=== PATIENT | female | born 1995 | race American Indian/Alaskan Native ===

== ENCOUNTER 2016-11-19 | Inpatient (IN) | payer MEDICAID ==
[2016-11-19] MEDS ORDERED: Lactated Ringers 500 ML IV ONE (00:01)
[2016-11-19] MEDS ORDERED: Carboprost Tromethamine 250 MCG/1 ML Amp IM PRN (00:01)
[2016-11-19] MEDS ORDERED: Misoprostol 400 MCG (4 X 100 MCG TAB) RECTAL PRN (00:01)
[2016-11-19] MEDS ORDERED: Sodium Chloride 0.9% 10 ML Syringe FLUSH PRN (00:01)
[2016-11-19] MEDS ORDERED: Lidocaine 1% 30 ML SDV INJECT PRN (00:01)
[2016-11-19] MEDS ORDERED: Acetaminophen 325 MG Tab PO PRN ×3 (00:01→13:17)
[2016-11-19] MEDS ORDERED: Methylergonovine 0.2 MG/1 ML Amp IM PRN (00:01)
[2016-11-19] MEDS ORDERED: Misoprostol 25 MCG (1/4 of 100 MCG) Tab VAG PRN (00:01)
[2016-11-19] MEDS ORDERED: Oxytocin/Normal Saline 30 UNIT/500 ML BAG IV SCH ×2 (02:45→13:30)
[2016-11-19] MEDS: Lactated Ringers 1,000 ML IV SCH ×3 (03:05→20:44)
[2016-11-19] MEDS: Ondansetron 4 MG/2 ML SDV IV PRN ×2 (10:57→17:48)
--- NOTE | 2016-11-19 11:10 | HP ---
ADDENDUM: For history and physical, please see EPIC notes updated, and please see NST notes for updates as well. [facility] /[id number]
--- NOTE | 2016-11-19 11:12 | PN ---
DATE: 11/19/2016 SUBJECTIVE: The patient feels her contractions rating them 6/10, felt in the lower abdomen and back coming every couple minutes. Pitocin is currently at 4 milliunits per minute. The patient denies any headaches, visual changes, or upper abdominal pain. OBJECTIVE: Last blood pressure was 127/79. Tocometer reveals contractions every 1-1/2 to 2 minutes. Vaginal exam reveals her to be 3 cm, 60% to 70% effaced, -1 to -2 station, vertex suspected. Artificial rupture of membranes done after discussion with patient yielding copious amounts of clear fluid. Labs from last reviewed reveal a white cell count of 9.3, hemoglobin 11.5, and platelets 272. Urine protein-creatinine ratio 0.09. Drug screen negative and HELLP labs are negative. ASSESSMENT AND PLAN: Intrauterine 41-4/7 weeks by 37-6/7 weeks ultrasound complicated by gestational hypertension, insufficient care, positive gonorrhea and chlamydia in the third trimester, that has been treated. Anemia of with hemoglobin now being 11.5, GBS negative, G 2, P 1-0-0- 1, could not do Cytotec due to the amount of contractions she has had. She has been on low-dose Pitocin since last night and now status post artificial rupture of membranes. We will continue to follow clinically and closely. Continue Pitocin as needed as well. [facility] /[id number]
--- NOTE | 2016-11-19 11:55 | PCM.SN ---
- Free Text/Narrative Note: Intrathecal. Sitting position, sterile prep and drape. 1% lidocaine w bicarb for skinwheal to L2 L3 inbterspace. Introducer, 24 ga pencan x 1. Pos CSF, neg heme, neg parasthesia. 1:1000 pf epi wash, 15 mcg pf sufenta, 35 mcg pf fentanyl , 0.4 ml pf ns and 6 mg of 0.75% pf bupivacaine injected after CSF aspiration. Pt to L lateral position. Procedure time 6583-6916
[2016-11-19] MEDS ORDERED: Oxytocin/Normal Saline 60 UNIT/1,000 ML BAG ONE (13:13)
[2016-11-19] MEDS ORDERED: diphenhydrAMINE 50 MG/ML SDV IVPUSH PRN (13:17)
[2016-11-19] MEDS ORDERED: Ondansetron 4 MG/2 ML SDV IV PRN (13:17)
[2016-11-19] MEDS ORDERED: ePHEDrine 50 MG/ML SDV IVPUSH PRN (13:17)
[2016-11-19] MEDS ORDERED: Citric Acid/Sodium Citrate Solution 30 ML Cup PO ONE (13:17)
[2016-11-19] MEDS ORDERED: ceFAZolin 2 GM in Premix Bag 1 BAG IV ONE (13:17)
[2016-11-19] MEDS ORDERED: Citric Acid/Sodium Citrate Solution 30 ML Cup ONE (13:17)
[2016-11-19] MEDS ORDERED: Naloxone 2 MG/2 ML Syringe IVPUSH PRN (13:17)
[2016-11-19] MEDS ORDERED: Lactated Ringers 1,000 ML IV SCH (13:30)
--- NOTE | 2016-11-19 14:31 | PCM.SN ---
- Free Text/Narrative Note: Preop. Late entry 1323. No family Hx of anesthesia complications. Pos smoker, meds and allergies reviewed w chart review. Pos heartburn w . Mallampati 3 w large tongue. Lungs CTAB, heart RRR S1 S2 Risks benefits and alternatives of anesthesia explained to Pt. Pt denies questions or concerns. Plan SAB w GETA backup.
[2016-11-19] MEDS: Acetaminophen/oxyCODONE 325-5 MG Tab PO PRN ×2 (19:36→23:25)
[2016-11-19] MEDS: Ketorolac 30 MG/ML SDV IVPUSH SCH (20:44)
[2016-11-19] MEDS: Docusate Sodium 100 MG Cap PO PRN (23:24)
[2016-11-20] MEDS: Ketorolac 30 MG/ML SDV IVPUSH SCH ×2 (02:53→08:35)
[2016-11-20] MEDS: Acetaminophen/oxyCODONE 325-5 MG Tab PO PRN ×6 (03:24→23:43)
[2016-11-20] MEDS: Lactated Ringers 1,000 ML IV SCH (05:50)
--- NOTE | 2016-11-20 08:07 | OR ---
DATE: 11/19/2016 PREOPERATIVE DIAGNOSES: 1. Intrauterine 41-4/7th weeks by 37-6/7 week ultrasound. 2. Nonreassuring status. 3. Gestational hypertension. 4. Insufficient care. 5. Positive gonorrhea and chlamydia in third trimester-treated. 6. History of anemia in . 7. Group B Streptococcus, negative. 8. G2, P1-0-0-1. POSTOPERATIVE DIAGNOSES: 1. Intrauterine 41-4/7th weeks by 37-6/7 week ultrasound-delivered. 2. Nonreassuring status. 3. Gestational hypertension. 4. Insufficient care. 5. Positive gonorrhea and chlamydia in third trimester-treated. 6. History of anemia in . 7. Group B Streptococcus, negative. 8. G2, P1-0-0-1. 9. OP presentation. 10.Nuchal cord x1, reduced bluntly with delivery. PROCEDURE PERFORMED: NST, artificial rupture of membranes, Pitocin augmentation, and primary low transverse with 2-layer uterine closure. AUTOMATIC WASHER MECHANIC: 1. Diandra Porras MD. 2. Eliseo Barry, MS III. ANESTHESIA: Spinal. ESTIMATED BLOOD LOSS: 800 mL. IV FLUIDS: 600 mL of lactated Ringer's, 300 mL of Pitocin. URINE OUTPUT: 100 mL and clear yellow. START: 1345 hours. UTERINE INCISION: 1346 hours. DELIVERY: 1346 hours. STOP: 1414 hours. FINDINGS: Male, scores of 7 and 9, weight pending. DESCRIPTION OF PROCEDURE IN DETAIL: After informed consent was obtained, the patient was brought to the operating room where spinal anesthetic was administered. Shepherd was placed in the preop under sterile conditions. Abdomen was prepped and draped in the normal sterile fashion. The patient was placed in supine position with left lateral tilt. Prepping was done with Betadine sticks due to urgency of situation. Spinal was given after heart tones were monitored prior and after the spinal and after spinal, they were in the 120s. A skin incision was then made on lower abdomen in transverse Pfannenstiel-type fashion. This was carried down to the fascia, which was scored in the midline. Subcutaneous tissue was raked laterally bluntly and fascial incision was extended superiorly and inferiorly, and laterally using blunt technique, bluntly dissecting the fascia from the rectus and pyramidalis muscles. Rectus muscles were in the midline with blunt technique. Abdominal cavity was entered with blunt technique. Incision was extended superiorly and inferiorly using blunt technique. Chaitanya O large retractor was then introduced and used. A curvilinear incision was made on lower uterine segment at 1346 hours, clear fluid returned. The uterine incision was then extended in transverse fashion using blunt technique. vertex was then brought up from the pelvis and delivered through the incision with nuchal cord x1, reduced bluntly with delivery with OP presentation noted, rest of the delivered thereafter without difficulty. Mouth and nares were suctioned. Cord was doubly clamped and cut, and infant was brought over to team. Then, approximately 10 mL of cord blood was obtained for labs. Placenta was then delivered with gentle cord traction and fundal massage. Uterine cavity was then cleared of all blood clots and debris with lap sponge. Sosa clamps were used to grasp the uterine incision, this was closed in a running locked fashion, tied at lateral margins. Of note, left lateral portion incision did extend inferiorly approximately 2 cm from the lower uterine segment. A second imbricating layer was then applied and tied at lateral margin with 1-0 Vicryl. Minimal bleeding was noted at right lateral portion of incision and one [id number]-[id number] stitch was applied, hemostasis reassured. The uterus was exteriorized for this right lateral figure-eight stitch for better visualization. First inspection of the uterine incision revealed hemostasis and uterus was returned to the abdomen. Second inspection of the uterine incision revealed hemostasis and Chaitanya O retractor was then removed. Pericolic gutters were cleared of all blood clots, debris with lap sponge. Anterior cul-de-sac was then irrigated copiously and all blood clots were removed. Third and final inspection of the uterine incision and anterior cul-de-sac revealed hemostasis. Rectus muscles were then reapproximated in midline using [id number] stitches and 1-0 Vicryl. Subfascial tissue was found to be hemostatic. Fascia was closed in running fashion, tied at lateral margins with 0 looped PDS. Subcutaneous tissue was irrigated copiously. Hemostasis was reassured. Skin was reapproximated with medium teo. Sterile Aquacel dressing was applied. Uterine fundus was firm and massaged at conclusion of the case -1 below umbilicus. No immediate complications were noted. Sponge, lap, and needle counts were correct. The patient received 2 g of Ancef preoperatively, Pitocin per protocol, and will receive Toradol at the conclusion of case for pain control. Mother and are currently stable at the time of dictation. [facility] /[id number]
--- NOTE | 2016-11-20 08:11 | PN ---
DATE: 11/19/2016 SUBJECTIVE: I was called to the room in a stat fashion. OBJECTIVE: heart tones do reveal a 5 minute deceleration, lowest heart rate during that time was around 70s to 80s with some recurrent late decelerations prior to this. She has also had some variable decelerations. Last blood pressure 133/79, heart rate 90, Pitocin has been stopped. Tocometer reveals contractions every 1.5 to 5 minutes apart. Vaginal exam reveals her to be 7-8 cm, 70% effaced -1 station, vertex suspected. ASSESSMENT AND PLAN: Nonreassuring status with late decelerations or prolonged deceleration. At current time of dictation, heart tones are in the 120s. Pitocin was stopped, oxygen started, IV fluids have been given, and we will proceed to the OR as soon as crew is ready and available. I did discuss with the patient, we will check her cervix prior to going the OR in the case that she is in the second stage of labor and may consider vaginal delivery at that time possibly. I did discuss with patient and her older female partner who was there. I did discuss with them risks, benefits, alternatives, and complications of including, but are not limited to infection, bleeding, damage to internal organs such as bowel, bladder, tubes, uterus, sometimes fetus; rarely needing a blood transfusion or further surgery, and even rare maternal or . She understands and agrees and wishes to proceed. Verbal and written consents were obtained, questions were answered. We will check her cervix prior to leaving the OR, otherwise we will proceed as above. [facility] /[id number]
--- NOTE | 2016-11-20 08:11 | PN ---
DATE: 11/19/2016 SUBJECTIVE: The patient still feels her contractions. OBJECTIVE: She just had another deceleration that lasted for 4 to 6 minutes. Vaginal exam done reveals her to be still 8 cm, 70% effaced, -1 station, vertex suspected. ASSESSMENT AND PLAN: Nonreassuring status in this patient, OR crew is almost ready, and DOUGHNUT MACHINE OPERATOR is seeing the patient right now. We will proceed to the OR as soon as possible due to the nonreassuring status. This was discussed with the patient, she understands and agrees. [facility] /[id number]
--- NOTE | 2016-11-20 08:13 | OBOUT ---
DATE: 11/19/2016 DATE AND TIME OF NST: Date: 11/19/2016. Time 0020 hours to 0040 hours. REASON FOR NST: 1. Intrauterine 41-4/7th weeks by 37-6/7 week ultrasound. 2. Gestational hypertension. 3. Insufficient care. 4. Positive GC and chlamydia in third trimester-treated. 5. Anemia of . 6. Group B Streptococcus, negative. 7. G2, P1-0-0-1. NST INTERPRETATION: During this time period, heart tone baseline is approximately 135, and there are at least two 15 x 15 beat per minute accelerations, making this strip reactive. It is also noted to be reassuring. Tocometer reveals potential of 7 to 8 contractions during this time. ASSESSMENT: 1. Non-stress test reactive and reassuring. 2. Tocometer with contractions. PLAN: The patient was initially evaluated, had some elevated blood pressures 147/97, temperature 98.5, heart rate 85. Recheck 150/99. Preeclampsia workup was done with HELLP labs being negative as well as a protein creatinine ratio being 0.09, and urine drug screen being negative. She was subsequently admitted and because of her risk factors, she was to be induced with Cytotec however, she had to make contractions, therefore, low-dose Pitocin was started for induction/augmentation of her labor. Please see EPIC for history and physical for further details. [facility] /[id number]
[2016-11-20] MEDS: Docusate Sodium 100 MG Cap PO PRN (08:36)
--- NOTE | 2016-11-20 10:13 | PN ---
DATE: 11/20/2016 day #1. SUBJECTIVE: The patient is tolerating p.o., has not ambulated yet. Shepherd is in place. Flatus is questionable. OBJECTIVE: Vital Signs: Last set of vitals updated and listed in chart reveals temperature 97, heart rate 93, blood pressure 144/82, and respiratory rate 16. Lungs: Clear to auscultation bilaterally. Heart: S1 and S2. Regular rate and rhythm. Firm uterus at the umbilicus. Aquacel dressing appears dry and intact with no shadowing. I's and O's reveal over the last 6 hours having 650 mL out. LABORATORY DATA: White cell count 20.3, hemoglobin 8.9, and platelets 220. ASSESSMENT AND PLAN: day #1. 1. Status post primary low transverse 2 layer with uterine closure. 2. Leukocytosis, suspect reactive in nature. We will repeat CBC tomorrow. 3. Anemia acute blood loss with hemoglobin dropping from 11.5 to 8.9. 4. Gestational hypertension. She has had some blood pressures that have been elevated, but nothing in severe range. We will continue to follow clinically and closely. We will follow up for any signs and symptoms of preeclampsia as well. Of note, her urinalysis and protein creatinine ratio was not consistent with preeclampsia. Discussed plans with the patient. She understands and agrees with the above treatment plan. [facility] /[id number]
--- NOTE | 2016-11-20 10:47 | PCM.SN ---
- Free Text/Narrative Note: Post op. Pt alert and oriented. VSS. Pt denies [place], backache, parasthesias or nausea. Taking PO well. Pain controlled, ambulating w/o difficulty. No anesthesia concerns noted.
[2016-11-20] MEDS: Ibuprofen 800 MG Tab PO PRN ×2 (15:58→23:43)
[2016-11-20] MEDS: Ferrous Sulfate 325 MG Tab PO SCH (17:40)
[2016-11-20] MEDS: Prenatal Multivitamin with Calcium/Folic Acid/Iron Tab PO SCH (17:40)
[2016-11-20] MEDS: Simethicone 80 MG Tab.Chew PO PRN (23:45)
[2016-11-21] MEDS: Simethicone 80 MG Tab.Chew PO PRN ×4 (03:51→16:18)
[2016-11-21] MEDS: Acetaminophen/oxyCODONE 325-5 MG Tab PO PRN ×5 (03:51→20:09)
[2016-11-21] MEDS: Ferrous Sulfate 325 MG Tab PO SCH (08:06)
[2016-11-21] MEDS: Prenatal Multivitamin with Calcium/Folic Acid/Iron Tab PO SCH (08:06)
[2016-11-21] MEDS: Docusate Sodium 100 MG Cap PO PRN ×2 (08:06→20:09)
--- NOTE | 2016-11-21 11:45 | PN ---
DATE: 11/21/2016 Postop day #2, status post primary low transverse with 2-layer uterine closure. SUBJECTIVE: The patient describes some minimal soreness around the incision. Otherwise, she has been tolerating p.o., ambulating, urinating, and passing flatus. OBJECTIVE: Exam done in conjunction with Eliseo Barry, MS III. Vital signs: Temperature 97.7, heart rate 79, blood pressure 134/68, respiratory rate 16. Lungs: Clear to auscultation bilaterally. Heart: S1 and S2. Regular rate and rhythm. Firm uterus approximately at the umbilicus. Aquacel dressing dry and intact. AUGUSTINE hose are on. ASSESSMENT AND PLAN: 1. Postop day #2, status post primary low transverse with 2-layer uterine closure. 2. Anemia of acute blood loss with hemoglobin dropping from 11.5 to 8.9. We will check a CBC tomorrow. PLAN: We will continue to follow clinically and closely. Possible discharge tomorrow and discussed with the patient. She understands and agrees. [facility] /[id number]
[2016-11-21] MEDS: Ibuprofen 800 MG Tab PO PRN (17:00)
[2016-11-22] MEDS: Acetaminophen/oxyCODONE 325-5 MG Tab PO PRN ×4 (00:09→13:21)
[2016-11-22] MEDS: Simethicone 80 MG Tab.Chew PO PRN ×4 (00:09→13:21)
[2016-11-22] MEDS: Ibuprofen 800 MG Tab PO PRN (02:35)
[2016-11-22 07:50] VITALS: BP 121/74
[2016-11-22] MEDS: Ferrous Sulfate 325 MG Tab PO SCH (08:54)
[2016-11-22] MEDS: Prenatal Multivitamin with Calcium/Folic Acid/Iron Tab PO SCH (08:54)
[2016-11-22] MEDS: Docusate Sodium 100 MG Cap PO PRN (08:54)
--- NOTE | 2016-11-22 09:57 | PN ---
DATE: 11/22/2016 Postoperative day #3, status post primary low transverse with 2-layer uterine closure. SUBJECTIVE: The patient is doing well, lying in bed this morning. Some mild pain at the incision site, otherwise has been tolerating liquids and solids p.o., ambulating, has been able to urinate and pass gas but has not had a bowel movement. The reports feeding formula for baby has been going well. She has no concerns for herself or baby at this time. OBJECTIVE: Vital Signs: Temp is 97.5 Fahrenheit, pulse is 80, blood pressure is 121/74, and respirations 16, with O2 saturation 98. Appearance: The patient is doing well, lying in bed, in no acute distress. Lungs: Clear to auscultation bilaterally. Heart: S1 and S2 are normal. Regular rate and rhythm. Abdomen: Soft, with firm uterus. Bowel sounds are present. Extremities: No swelling or pain in the lower extremities. Aquacel dressing is dry and intact. AUGUSTINE hoses are on. LABORATORY DATA: CBD done; hemoglobin is 8.8 this morning and hematocrit is 27.6, WBC is 14.8 and RBC is 3.14. ASSESSMENT: 1. Postoperative day #3, status post primary low transverse with 2- layer uterine closure. 2. Anemia of acute blood loss with hemoglobin dropping from 11.5 to 8.8. PLAN: Both, the patient and baby, are doing well. Pain is controlled. Hemoglobin is up to 8.8. We will look at discharging today. [facility] /[id number]
[2016-11-22] MEDS ORDERED: fentaNYL 100 MCG/2 ML SDV IV ONE (13:29)
[2016-11-22] MEDS ORDERED: ePHEDrine 50 MG/ML SDV IV ONE (13:29)
[2016-11-22] MEDS ORDERED: Dexamethasone 4 MG/ML SDV IV ONE (13:29)
[2016-11-22] MEDS ORDERED: Ketorolac 30 MG/ML SDV IVPUSH ONE (13:29)
[2016-11-22] MEDS ORDERED: Morphine PF 5 MG/10 ML SDV IV ONE (13:29)
[2016-11-22] MEDS ORDERED: Oxytocin/Normal Saline 30 UNIT/500 ML BAG IV ONE (13:29)
--- NOTE | 2016-11-23 10:53 | DISCH ---
ADMIT DIAGNOSES: 1. Intrauterine 41-4/7th weeks by 37-6/7 week ultrasound. 2. Gestational hypertension. 3. Insufficient care. 4. Positive gonorrhea and chlamydia-treated in the 3rd trimester. 5. Anemia of . 6. Group B Streptococcus negative. 7. G2, P1-0-0-1. DISCHARGE DIAGNOSES: 1. Intrauterine 41-4/7th weeks by 37-6/7 week ultrasound-delivered. 2. Gestational hypertension. 3. Insufficient care. 4. Positive gonorrhea and chlamydia-treated in the 3rd trimester. 5. Anemia of . 6. Group B Streptococcus, negative. 7. G2, P1-0-0-1. 8. Nonreassuring status. 9. OP presentation. 10.Nuchal cord x1, reduced bluntly with delivery. 11.Anemia of acute blood loss with hemoglobin dropping from 11.5 to 8.8. PROCEDURE PERFORMED: NST, artificial rupture of membranes, Pitocin augmentation, and then subsequent primary low transverse with two- layer uterine closure per Dr. Bowman. HISTORY OF PRESENT ILLNESS: Please see H and P. SUMMARY OF HOSPITAL COURSE: The patient was admitted on the above date with the above diagnoses, underwent above procedures, then went on to have nonreassuring status, which prompted a primary low transverse with two-layer uterine closure done under spinal anesthetic with an EBL of 800 mL. Please see delivery/OP note for further details. This yielded a male, scores 7 and 9, with a weight of 3630 g (8 pounds). Postoperative day #1 and #2, please see progress note. Postop day #3, discharge evaluation: Vital signs: Last set of vitals updated and listed in the chart; temperature 97.5, heart rate 80, blood pressure 121/74, respiratory rate 16. Lungs: Clear to auscultation bilaterally. Heart: S1 and S2. Regular rate and rhythm. Abdomen: Firm uterus approximately at umbilicus. Aquacel dressing appears dry and intact. Extremities: Trace pedal edema. No calf pain. LABORATORY DATA: Discharge labs reveal a white cell count of 14.8, hemoglobin 8.8, platelets 224. CONDITION ON DISCHARGE COMPARED TO CONDITION ON ADMISSION: Improved. DISCHARGE INSTRUCTIONS: 1. Diet, as tolerated. 2. Activity; no lifting more than 10 to 15 pounds. No sit-ups, straining, and pelvic rest for the next 6 weeks with immediate return to fertility discussed with the patient. 3. Reasons to return or go to the emergency room were discussed with the patient in detail including, but not limited to, temperature greater than 100.4, foul-smelling discharge, red, hot, tender breasts, or increased vaginal bleeding. DISCHARGE MEDICATIONS: 1. [id number]-oed-jzupmtz Tylenol or ibuprofen for pain. 2. Iron sulfate 325 b.i.d. x6 weeks. 3. Percocet 5/325, one to two q.6 hours p.r.n., #30, no refills. Discussed the use of this medication, adverse and wanted effects, as well as precautions with driving. FOLLOWUP: Follow up on Saturday11/26/2016, with her baby, for staple removal. I did discuss the importance of followup of her and ramifications of not doing so. The patient understands and agrees with the above treatment plan. [facility] /[id number]
== END 2016-11-22 13:30 | disposition home or self-care (01) | DRG 765 ==
LOC: DL.OB → UNDOADMIN → EDSTATUS 01:22 → DL.OB 13:46 → DL.MS 11-20 11:02
PROVIDERS: ADMIT Family Medicine; ATTEND Family Medicine
PROC: 10D00Z1 Extraction of Products of Conception, Low, Open Approach (ICD-10-PCS; principal; 2016-11-19)
PROC: 4A0HXCZ Measurement of Products of Conception, Cardiac Rate, External Approach (ICD-10-PCS; 2016-11-19)
PROC: 3E033VJ Introduction of Other Hormone into Peripheral Vein, Percutaneous Approach (ICD-10-PCS; 2016-11-19)
DX: O76 Abnormality in fetal heart rate and rhythm complicating labor and delivery (principal); O98.22 Gonorrhea complicating childbirth; O98.82 Other maternal infectious and parasitic diseases complicating childbirth; D62 Acute posthemorrhagic anemia; O13.4 Gestational [pregnancy-induced] hypertension without significant proteinuria, complicating childbirth; O09.33 Supervision of pregnancy with insufficient antenatal care, third trimester; O69.1XX0 Labor and delivery complicated by cord around neck, with compression, not applicable or unspecified; O90.81 Anemia of the puerperium; Z3A.41 41 weeks gestation of pregnancy; Z37.0 Single live birth
CPT/HCPCS: 01961; 01967; 36415; 51702; 80305; 82570; 83615; 84156; 84450; 84460; 84520; 84550; 85025; 85027; 94010; A9270-GY; J0690; J1100; J1885; J2274; J2405; J2590; J3010; J7120

== ENCOUNTER 2019-11-09 06:03 | Inpatient (IN) | payer MEDICAID ==
[2019-11-09] MEDS ORDERED: Acetaminophen/oxyCODONE 325-5 MG Tab PO PRN (06:08)
[2019-11-09] MEDS ORDERED: Misoprostol 400 MCG (4 X 100 MCG TAB) RECTAL PRN (06:08)
[2019-11-09] MEDS ORDERED: Carboprost Tromethamine 250 MCG/1 ML Amp IM PRN (06:08)
[2019-11-09] MEDS ORDERED: Naloxone 2 MG/2 ML Syringe IVPUSH PRN (06:08)
[2019-11-09] MEDS ORDERED: diphenhydrAMINE 50 MG/ML SDV IVPUSH PRN (06:08)
[2019-11-09] MEDS ORDERED: Tranexamic Acid 1,000 MG in Sodium Chloride 0.9% 100 ML IV PRN (06:08)
[2019-11-09] MEDS ORDERED: ceFAZolin 2 GM in Premix Bag 1 BAG IV ONE (06:08)
[2019-11-09] MEDS ORDERED: Acetaminophen 325 MG Tab PO PRN (06:08)
[2019-11-09] MEDS ORDERED: Citric Acid/Sodium Citrate Solution 30 ML Cup PO ONE (06:08)
[2019-11-09] MEDS ORDERED: Methylergonovine 0.2 MG/1 ML Amp IM PRN (06:08)
[2019-11-09] MEDS ORDERED: Oxytocin/Normal Saline 30 UNIT/500 ML BAG IV SCH (06:15)
[2019-11-09] MEDS: Lactated Ringers 1,000 ML IV SCH ×4 (06:24→20:29)
[2019-11-09 07:17] LABS: CHLORIDE,CL 108 mmol/L (101-111); SODIUM,NA 135 mmol/L (135-145)
[2019-11-09] MEDS ORDERED: ePHEDrine 50 MG/ML SDV IV ONE (10:38)
[2019-11-09] MEDS ORDERED: Oxytocin/Normal Saline 30 UNIT/500 ML BAG IV ONE (10:38)
[2019-11-09] MEDS ORDERED: Ketorolac 30 MG/ML SDV IVPUSH ONE (10:38)
[2019-11-09] MEDS ORDERED: Morphine PF 1 MG/ML Amp ITHECAL ONE (10:38)
[2019-11-09] MEDS ORDERED: Ondansetron 4 MG/2 ML SDV IV ONE (10:38)
[2019-11-09] MEDS ORDERED: Lactated Ringers 1,000 ML IV ONE (10:38)
[2019-11-09] MEDS ORDERED: Dexamethasone 4 MG/ML SDV IV ONE (10:38)
[2019-11-09] MEDS ORDERED: CEL IM ONE (10:45)
[2019-11-09] MEDS ORDERED: FLU VAC QS IM ONE (10:45)
[2019-11-09] MEDS ORDERED: Diphtheria,Pertussis(Acell),Tetanus Vaccine 0.5 ML SDV IM ONE (10:45)
[2019-11-09] MEDS ORDERED: Sodium Bicarbonate 4.2% 2.5 MEQ/5 ML SDV IV ONE (10:47)
[2019-11-09] MEDS: Simethicone 80 MG Tab.Chew PO SCH ×4 (10:48→20:29)
[2019-11-09] MEDS: Prenatal Multivitamin with Calcium/Folic Acid/Iron Tab PO SCH (10:48)
[2019-11-09] MEDS ORDERED: Labetalol 100 MG/20 ML MDV IVPUSH ONE (11:00)
[2019-11-09] MEDS: Ondansetron 4 MG/2 ML SDV IVPUSH PRN ×2 (11:00→16:10)
--- NOTE | 2019-11-09 11:19 | OR ---
DATE: 11/09/2019 PREOPERATIVE DIAGNOSES: 1. Intrauterine at 37 and 3/7 weeks by 31 and 4/7 weeks ultrasound. 2. Gestational hypertension. 3. Previous , requests repeat low transverse section. 4. GBS bacteriuria. 5. History of positive urine drug screen for THC. Negative upon admission. 6. Trichomoniasis in - treated. 7. Antibody E isoimmunization. Maternal- Medicine consult given. No evidence of anemia. Recommendation to deliver at 37+ weeks. 8. History of preeclampsia with previous . 9. G3, P2-0-0-2. POSTOPERATIVE DIAGNOSES: 1. Intrauterine at 37 and 3/7 weeks by 31 and 4/7 weeks ultrasound - delivered. 2. Gestational hypertension. 3. Previous , requests repeat low transverse section. 4. GBS bacteriuria. 5. History of positive urine drug screen for THC. Negative upon admission. 6. Trichomoniasis in - treated. 7. Antibody E isoimmunization. Maternal- Medicine consult given. No evidence of anemia. Recommendation to deliver at 37+ weeks. 8. History of preeclampsia with previous . 9. G3, P2-0-0-2. 10.Nuchal cord x1, reduced bluntly with delivery. PROCEDURES PERFORMED: NST followed by repeat low transverse . HAIR SPRING CUTTER: Rosey Zhang MD ANESTHESIA: Spinal. ESTIMATED BLOOD LOSS: 450 mL. IV FLUIDS: 700 mL of lactated Ringer's, 200 mL of Pitocin. URINE OUTPUT: 225 mL and clear yellow. START: 7:59. UTERINE INCISION: 8:01. DELIVERY: 8:02. STOP: 8:19. FINDINGS: Male, score 9 and 9, weight pending. DESCRIPTION OF PROCEDURE IN DETAIL: After proper consent was obtained, the patient was brought to the operating room where spinal anesthetic was administered. Shepherd was placed in preop under sterile conditions. Abdomen was prepped and draped in normal sterile fashion. The patient was placed in supine position with left lateral tilt. A skin incision was then made over lower abdomen in transverse Pfannenstiel-type fashion over previous scar and this was carried down the fascia and scored in midline. Subcutaneous tissue raked laterally with Coyle retractor. Fascial incision was extended in transverse fashion using curved Roldan's. Perico clamps x2 were used to grasp the superior aspect of the fascia, and rectus muscles dissected from the fascia using sharp and blunt technique. In a similar fashion, Perico clamps x2 were used to grasp the inferior portion of incision and rectus and pyramidalis muscles were dissected from the fascia using sharp and blunt technique. Rectus muscles were in midline with blunt technique. Abdominal cavity was entered with blunt technique and incision was extended superiorly and inferiorly with blunt technique. Chaitanya O large retractor was introduced and used. Vesicouterine peritoneum was identified, incised in transverse fashion with Metzenbaum scissors, and bladder flap was made digitally. A curvilinear incision was made on the lower uterine segment at 0801 hours. Uterus was entered sharply. Clear fluid returned after uterine incision was extended in transverse fashion and rupture of membranes was performed with Allis clamps. vertex was then delivered through the incision followed by rest of the delivered without difficulty. Nuchal cord x1 reduced bluntly with delivery. Mouth and nares were suctioned. Cord was doubly clamped and cut, and infant was brought over to the team. Then, approximately 10 mL of cord blood was obtained for labs. Placenta then delivered with gentle cord traction and fundal massage. Uterine cavity was then cleared of all blood clots and debris with lap sponge. Sosa clamps were used to grasp the uterine incision. This was closed in a running locked fashion and tied at lateral margins with 1-0 Vicryl. Right of midline, there was 1 area of bleeding, 1 xdzvqt-ul-ezqjv stitch was applied and hemostasis reassured. Chaitanya O retractor was then removed and paracolic gutters were then cleared of all blood clots and debris with lap sponge. Anterior cul-de-sac was irrigated copiously and all blood clots were removed. Second and final inspection of the uterine incision and anterior cul-de-sac revealed hemostasis. Rectus muscles were then reapproximated in midline with sgvpqx-ka-[id number] stitch using 1-0 Vicryl. Subfascial tissues were found to be hemostatic and fascia was closed in a running fashion and tied at lateral margins with 0 looped PDS. Subcutaneous tissue was irrigated copiously. Hemostasis was reassured. Skin was reapproximated with medium teo. Sterile Aquacel dressing was applied. The uterine fundus was firm and massaged at the conclusion of this case -2 below umbilicus. No immediate complications were noted. Sponge, lap, and needle counts were correct. The patient received 2 g of Ancef preoperatively, Pitocin per protocol, and will receive Toradol at the conclusion of case for pain control. Mother and are currently stable at the time of dictation. [facility] /[id number]
--- NOTE | 2019-11-09 11:40 | OBOUT ---
DATE: 11/09/2019 TIME: 6:20 to 6:40. REASON FOR NST: 1. Intrauterine at 37 and 3/7 weeks by 31 and 4/7 weeks ultrasound. 2. Gestational hypertension versus preeclampsia, workup being currently done. 3. Previous , requests repeat low transverse . 4. GBS bacteriuria. 5. History of positive urine drug screen for THC earlier in the , negative upon admission. 6. Trichomoniasis in the earlier, treated. 7. Antibody E isoimmunization. 8. Maternal medicine consult. No evidence anemia and no need for further workup. Please see previous notes. 9. History of preeclampsia with previous . 10.G3, P2-0-0-2. NST INTERPRETATION: During this time period, heart tone baseline is approximately 140 and there are at least two 15 x 15 beats per minute accelerations making this strip reactive. It is also noted to be reassuring. Tocometer reveals potential of 3 contractions, minimally felt by the patient during this time period. Blood pressure initially 148/95 with a heart rate of 80, temperature 98.1. On recheck, 160/111 and then recheck thereafter it was 157/102. Heart rate was between 75 and 83. The patient has been afebrile. ASSESSMENT AND PLAN: 1. Nonstress test, reactive and reassuring. 2. Tocometer with contractions, minimally felt by the patient. PLAN: Due to her hypertension, preeclampsia workup has been done, currently awaiting labs that were done urgently. Her urine drug screen was negative upon admission. We will continue to follow clinically and closely and proceed with repeat low transverse as soon as operating crew is ready and available. Please see history and physical done through [facility] and for this records were called for, reviewed and supplemented by the patient's history as well. Review of systems otherwise reviewed and felt to be contributory per notes. [facility] /[id number]
[2019-11-09] MEDS: Ketorolac 30 MG/ML SDV IVPUSH SCH ×2 (14:13→20:29)
[2019-11-09] MEDS: Docusate Sodium 100 MG Cap PO PRN (20:29)
[2019-11-10] MEDS: Ketorolac 30 MG/ML SDV IVPUSH SCH (02:26)
[2019-11-10] MEDS: Lactated Ringers 1,000 ML IV SCH (04:13)
[2019-11-10] MEDS: Acetaminophen/oxyCODONE 325-5 MG Tab PO PRN ×5 (04:13→21:31)
[2019-11-10] MEDS: Simethicone 80 MG Tab.Chew PO SCH ×4 (08:35→21:11)
[2019-11-10] MEDS: Docusate Sodium 100 MG Cap PO PRN ×2 (08:35→21:11)
[2019-11-10] MEDS: Prenatal Multivitamin with Calcium/Folic Acid/Iron Tab PO SCH (08:35)
--- NOTE | 2019-11-10 10:32 | PN ---
DATE: 11/10/2019 Postoperative day #1, status post repeat low transverse . SUBJECTIVE: The patient is tolerating p.o., ambulating, passing flatus. Shepherd in place. OBJECTIVE: Vital Signs: Temperature 98.2, heart rate 81, blood pressure 120/77, respiratory rate 18. Lungs: Clear to auscultation bilaterally. Heart: S1 and S2. Regular rate and rhythm. Abdomen: Firm uterus at approximately the umbilicus. Aquacel dressing is dry and intact. Extremities: AUGUSTINE hoses are on. LABORATORY DATA: This morning, white cell count 19.4, hemoglobin 9.6, platelets 246. ASSESSMENT AND PLAN: 1. Postop day #1, status post repeat low transverse section, complicated by gestational hypertension and antibody E isoimmunization. Nuchal cord x1, reduced bluntly with delivery. Please see op note for further details. At this point in time, the patient appears stable. We will continue to follow clinically and closely. 2. Anemia of acute blood loss. Hemoglobin dropping down to 9.6 from 11.2. The patient is currently asymptomatic. Vital signs are stable. We will continue to follow closely at this point in time as well. [facility] /[id number]
[2019-11-10] MEDS: Ibuprofen 800 MG Tab PO PRN ×2 (11:29→19:26)
[2019-11-11] MEDS: Acetaminophen/oxyCODONE 325-5 MG Tab PO PRN ×5 (02:51→20:00)
[2019-11-11] MEDS: Docusate Sodium 100 MG Cap PO PRN ×2 (07:58→20:00)
[2019-11-11] MEDS: Ibuprofen 800 MG Tab PO PRN ×2 (07:58→16:10)
[2019-11-11] MEDS: Prenatal Multivitamin with Calcium/Folic Acid/Iron Tab PO SCH (08:00)
[2019-11-11] MEDS: Simethicone 80 MG Tab.Chew PO SCH ×4 (08:00→20:00)
--- NOTE | 2019-11-11 12:14 | PN ---
DATE: 11/11/2019 Postop day #2, status post repeat low transverse . SUBJECTIVE: The patient is tolerating p.o., ambulating, urinating, passing flatus. Denies any visual changes or upper abdominal pain. She has mild headache which she has had chronically. OBJECTIVE: Vital Signs: Temperature 98.5, heart rate 88, blood pressure 142/88, respiratory rate is 18. Lungs: Clear to auscultation bilaterally. Heart: S1, S2. Regular rate and rhythm. Genitourinary: Firm uterus -1 below umbilicus. Aquacel dressing is dry and intact. Extremities: Trace pedal edema. No calf pain. ASSESSMENT AND PLAN: Postop day #2, status post repeat low transverse section with gestational hypertension, which has persisted minimally during the , not in the severe range with no signs or symptoms of severe preeclampsia. Therefore, we will continue to follow clinically and closely at this point in time. Possible discharge tomorrow. Pending is baby status. The patient understands and agrees with the above treatment plan. [facility] /[id number]
[2019-11-11] MEDS: Zolpidem 5 MG Tab PO PRN (22:23)
[2019-11-12] MEDS: Ibuprofen 800 MG Tab PO PRN ×3 (00:51→17:23)
[2019-11-12] MEDS: Acetaminophen/oxyCODONE 325-5 MG Tab PO PRN ×6 (00:52→20:57)
[2019-11-12] MEDS: Prenatal Multivitamin with Calcium/Folic Acid/Iron Tab PO SCH (09:11)
[2019-11-12] MEDS: Docusate Sodium 100 MG Cap PO PRN ×2 (09:11→20:56)
[2019-11-12] MEDS: Simethicone 80 MG Tab.Chew PO SCH ×4 (09:11→20:56)
[2019-11-12] MEDS: Labetalol 100 MG Tab PO SCH ×2 (09:15→20:57)
--- NOTE | 2019-11-12 12:01 | PN ---
DATE: 11/12/2019 Postop day #3. SUBJECTIVE: The patient has been complaining of some headaches in frontal region behind her eyes bilaterally. She has been taking Motrin and Percocet for pain control. She was noted to have gestational hypertension during this . She has otherwise been tolerating p.o., ambulating, urinating, passing flatus. Pain is under control otherwise. OBJECTIVE: Vital Signs: Temperature 97.9, heart rate 79, blood pressure 150/94, respiratory rate is 18, and since yesterday morning, all blood pressures have had at least an elevated systolic or diastolic but nothing over 160s over 100s. Heart rate was 79 this morning. Appearance: Lying in the bed, sitting up appropriately and answering questions appropriately. Lungs: Clear to auscultation bilaterally. Heart: S1 and S2. Regular rate and rhythm. HEENT: Head is atraumatic. EOMs intact. PERRLA. No scleral icterus. No obvious otorhinorrhea. Mucous membranes are moist. Abdomen: Firm uterus -2 at umbilicus. Aquacel dressing appears dry and intact. Extremities: Trace pedal edema. Deep tendon reflexes 2-3/4 bilaterally and symmetric in lower extremities. Neurologic: Cranial nerves 2 through 12 grossly intact. Psychiatric: Mood and affect congruent. Judgment and insight intact. Pending is a PIH panel. ASSESSMENT AND PLAN: 1. Postop day #3, status post repeat low transverse section. 2. Gestational hypertension complicating this with now a headache that has not seemed to go away with continued elevated blood pressures despite delivery. I did discuss with the patient. We will start her on labetalol 100 mg b.i.d. as well as due to the PIH panel as above, and follow clinically and closely. At this point in time, the headache is described more as mild, not as a severe type headache and has had some pain relief with medications, therefore I doubt this was true severe preeclampsia but based on her symptoms and continued elevated blood pressures despite delivery, we will do the above workup and follow clinically and closely. The patient understands and agrees with above treatment plan. [facility] /[id number]
[2019-11-12] MEDS: Zolpidem 5 MG Tab PO PRN (20:57)
[2019-11-13] MEDS: Acetaminophen/oxyCODONE 325-5 MG Tab PO PRN ×5 (03:02→21:50)
[2019-11-13] MEDS: Ibuprofen 800 MG Tab PO PRN ×3 (03:02→21:12)
[2019-11-13] MEDS: Docusate Sodium 100 MG Cap PO PRN ×2 (07:58→21:12)
[2019-11-13] MEDS: Prenatal Multivitamin with Calcium/Folic Acid/Iron Tab PO SCH (07:59)
[2019-11-13] MEDS: Simethicone 80 MG Tab.Chew PO SCH ×4 (08:00→21:11)
[2019-11-13] MEDS: Labetalol 100 MG Tab PO SCH ×3 (08:00→21:12)
[2019-11-13] MEDS ORDERED: Labetalol 100 MG Tab PO SCH (09:00)
--- NOTE | 2019-11-13 12:37 | PN ---
DATE: 11/13/2019 Postop day #4, status post repeat low transverse section complicated by gestational hypertension versus preeclampsia. Currently, considered to be gestational hypertension with headaches, requiring medication administration and continued monitoring. SUBJECTIVE: The patient is tolerating p.o., ambulating, urinating, passing flatus. She still complains of a headache but it has improved minimally with labetalol use yesterday. She still notes her blood pressures are up. OBJECTIVE: Vital Signs: Blood pressure last night was 147/97, this morning it was 144/101 and 149/100, as well as 144/98. Heart rate has been around 89 range, respiratory rates are 16 to 20. Appearance: Standing and walking around. Lungs: Clear to auscultation bilaterally. Heart: S1 and S2. Regular rate and rhythm. Genitourinary: Firm uterus around -2 below the umbilicus. Skin: Aquacel dressing dry and intact. Extremities: No peripheral edema. No calf pain. LABORATORY DATA: Labs from yesterday did reveal a white cell count of 11.4, hemoglobin 11, platelets 316. PIH panel done remarkable for minimally elevated AST, but has been increasing at 70 with LDH minimally elevated at 196 and a protein-creatinine ratio at 0.26, which is what it was pre-delivery. Pending is a PIH panel for today. ASSESSMENT AND PLAN: 1. Postop day #4, status post repeat low transverse section. 2. Gestational hypertension versus preeclampsia. She may be having preeclampsia versus continued gestational hypertension and either way it is uncontrolled and we will increase her labetalol today to 200 mg b.i.d. Follow closely in regard to this as well as her symptoms with the headache. We will repeat the PIH panel as above to follow for any increase in LFTs or other concerns in regard to preeclampsia. PLAN: We will proceed as above. Dr. Mahmood will be covering in my absence. There is a potential for discharge this weekend and we will have them make a followup for her and baby on Saturday with Dr. Bowman in the clinic. [facility] /[id number]
--- NOTE | 2019-11-13 14:25 | PN ---
DATE: 11/13/2019 Labs returned. LDH elevated at 222, AST 104, ALT 78. Creatinine 0.5. Platelets are normal at 340. Hemoglobin was 9.8, white cell count was 11.3, protein-creatinine ratio of 0.12. Otherwise, moderate occult blood and leukocyte esterase on urinalysis. ASSESSMENT AND PLAN: Gestational hypertension, not diagnostic for preeclampsia as protein-creatinine ratio was not greater than 0.3. With increasing LFTs, I suspect this may be related to the labetalol vs postop and no preeclampsia noted. We will continue on labetalol 200 mg with increase today to 200 mg b.i.d. and follow clinically and closely. The patient's case has been discussed with Dr. Mahmood, who will be covering in my absence over the weekend. [facility] /[id number] MTDD
[2019-11-13] MEDS ORDERED: hydrOXYzine HCl 25 MG Tab PO PRN (20:13)
[2019-11-14] MEDS: Acetaminophen/oxyCODONE 325-5 MG Tab PO PRN ×5 (02:01→22:09)
[2019-11-14] MEDS: Ibuprofen 800 MG Tab PO PRN ×2 (06:01→15:47)
[2019-11-14 07:42] LABS: ANION GAP 11.1; CHLORIDE,CL 106 mmol/L (101-111); SODIUM,NA 137 mmol/L (135-145)
[2019-11-14] MEDS: Labetalol 100 MG Tab PO SCH ×3 (09:06→21:09)
[2019-11-14] MEDS: Prenatal Multivitamin with Calcium/Folic Acid/Iron Tab PO SCH (09:06)
[2019-11-14] MEDS: Simethicone 80 MG Tab.Chew PO SCH ×4 (09:07→21:09)
[2019-11-14] MEDS: Docusate Sodium 100 MG Cap PO PRN ×2 (09:07→21:09)
--- NOTE | 2019-11-14 21:37 | PN ---
DATE: 11/14/2019 SUBJECTIVE: Postop day #5 status post repeat low-transverse section with gestational hypertension, so far ruled out for preeclampsia. Reports this morning that she is overall feeling well. Has some burning type pain in the incisional site. No chest pain. No shortness of breath. Awoke with a mild headache, but that has gotten better. No right upper quadrant pain. No change in her edema. Bottle feeding her baby and feeling that is going well. She is tolerating orals. She is ambulating, voiding without difficulties, passing flatus. Has not yet had a bowel movement. Dr. Bowman did some additional labs yesterday afternoon that I only found out about this morning and including an increase in the AST and ALT, and therefore I have ordered some additional labs this morning. The patient has remained asymptomatic from a preeclampsia standpoint; however, with the increase in these labs, we are concerned about HELLP syndrome. Her baby remains in the hospital for very close monitoring of hyperbilirubinemia, and she is understandably growing increasingly frustrated with how long her hospital stay is lasting. OBJECTIVE: Vital Signs: Blood pressure 117/66, respiratory rate of 16, pulse of 82, O2 saturations 98% on room air. Lungs: Clear to auscultation bilaterally. Heart: Regular rate and rhythm without murmur. Abdomen: Soft, nontender. Bowel sounds positive in all 4 quadrants. Fundus firm and too below the umbilicus. Incision site is covered with an Aquacel dressing that is clean, dry and intact. Extremities: No peripheral edema. No erythema or tenderness is noted. MEDICATIONS: She is on labetalol 200 mg p.o. t.i.d., and other routine postoperative medications. She has been previously getting Ambien for sleep at night, but last night we switched that to Vistaril to hopefully help with any anxiety that could be contributing to her blood pressures as well. PERTINENT LABORATORY DATA: Yesterday afternoon's AST was 104, ALT of 78, lactate dehydrogenase up to 222. Urine protein-creatinine ratio of 0.12. White blood cell count 11.3, hemoglobin 9.8, platelet count 340. Otherwise, labs are noncontributory. Laboratory that I requested after seeing her this morning; white count 8.4, platelets 358. Chemistry panel; glucose of 72, calcium of 8.1, AST is down to 60, ALT down to 64, lactate dehydrogenase down to 179, which is now within normal limits. She has had a total protein of 6.3 and albumin of 2.7. Urine protein-creatinine ratio was also done and unfortunately I was not aware of the result until this evening when I logged back on to the computer and it is up at 0.58, uncertain if this was contaminated with blood. ASSESSMENT: 1. Postoperative day #5 status post repeat low-transverse section. 2. Gestational hypertension, now looking like she is preeclamptic. Although the HELLP syndrome labs have improved, the increase in proteinuria is concerning. There has been a shift change, so I have no idea if her urine sample was contaminated with a lot of vaginal blood or some other cause for the increased protein. Therefore, we will get a catheterized urine sample to follow up on that before initiating magnesium sulfate. Pending that result, we will also decide on if I need additional labs for tomorrow morning. 3. Protein malnutrition. 4. Anemia of and blood loss. 5. History of marijuana use. 6. History of preeclampsia, prior . The patient is quite medically complex and we will be anticipating monitoring her very closely prior to considering discharge. With the change with the increased protein-creatinine ratio, it certainly warrants her being in the hospital again overnight and we can consider discharge if she continues to make adequate clinical improvement and we also see appropriate laboratory improvement. Her baby is also being placed again under the bilirubin lights because of the hyperbilirubinemia secondary to antibody-E isoimmunization for the mother. [facility] /[id number] [place]
[2019-11-15] MEDS: Acetaminophen/oxyCODONE 325-5 MG Tab PO PRN ×2 (04:40→13:58)
[2019-11-15] MEDS: Ibuprofen 800 MG Tab PO PRN (04:40)
[2019-11-15] MEDS: Simethicone 80 MG Tab.Chew PO SCH (08:24)
[2019-11-15] MEDS: Labetalol 100 MG Tab PO SCH ×2 (08:25→13:56)
[2019-11-15] MEDS: Prenatal Multivitamin with Calcium/Folic Acid/Iron Tab PO SCH (08:25)
[2019-11-15] MEDS: Docusate Sodium 100 MG Cap PO PRN (08:25)
[2019-11-15 13:59] VITALS: BP 139/98; PULSE 87
--- NOTE | 2019-11-16 02:25 | DISCH ---
ADMITTING DIAGNOSES: 1. 3, para 2-0-0-2 at 37-3/7 weeks' gestation based on 31-week 4-day ultrasound. 2. Gestational hypertension with history of preeclampsia in prior . 3. Blood type A positive, group B strep positive. 4. History of marijuana use. Negative drug screen on admission. 5. History of Trichomonas treated this . 6. Antibody E isoimmunization without signs of anemia at Maternal Medicine consult and delivery recommended at 37+ weeks' gestation. 7. Anemia of . DISCHARGE DIAGNOSES: 1. 3, para 2-0-0-2 at 37-3/7 weeks' gestation based on 31-week 4-day ultrasound. 2. Gestational hypertension with history of preeclampsia in prior . 3. Blood type A positive, group B strep positive. 4. History of marijuana use. Negative drug screen on admission. 5. History of Trichomonas treated this . 6. Antibody E isoimmunization without signs of anemia at Maternal Medicine consult and delivery recommended at 37+ weeks' gestation. 7. Anemia of . 8. Anemia of blood loss. 9. Protein malnutrition. BRIEF HISTORY: A 24-year-old female with the above-listed diagnoses, brought into the hospital for elective section at early term carried out by Dr. Bowman without complications on the day of admission. Please see history and physical for full details. The patient at time of admission was asymptomatic from a preeclampsia standpoint, and Maternal Medicine felt that she was safe to be delivered at a [facility]. HOSPITAL COURSE: The patient was doing well initially in the postoperative period. However, on day #3, reported headache, and preeclampsia labs were negative. However, blood pressures remained elevated, so she was started on labetalol 100 mg twice daily. Labs at that time only remarkable for AST of 70, LDH of 196, and protein/creatinine ratio of 0.26. On postoperative day 4, she still complained of headache, but it improved by noontime. Blood pressures, however, were up in the 140s over 100 still. At this time, the patient had been on labetalol 200 mg b.i.d. and this was increased to 200 mg 3 times daily. Repeat labs showed AST 104, ALT 78, LDH 222, protein/creatinine ratio of 0.12, hemoglobin down to 9.8, platelets remained stable at 340. Concern for developing early HELLP syndrome, so she was being monitored very closely and carefully. However, not ruling in for preeclampsia, so magnesium sulfate not started. On postoperative day #5, her headache was again noted in the morning, but improved much more quickly. Her blood pressures were controlled well. Repeat labs showed stable platelets of 358. AST near normal at 60, ALT at 64, LDH at 179. Initial protein/creatinine ratio 0.58; however, I found this was contaminated with vaginal bleeding. So, a catheter urine sample was obtained and protein/creatinine ratio was 0.10. The patient did not have any preeclamptic symptoms and so she was monitored overnight and continued to do well. On discharge day, the patient was asymptomatic as far as preeclampsia symptoms. She had some incisional tenderness, but was passing flatus as well as had a couple of bowel movements. She was urinating without difficulties, ambulating, tolerating regular diet. No chest pain or shortness of breath. Bleeding was minimal and she was doing well. DISCHARGE CONDITION: Good. PHYSICAL EXAMINATION: Vital signs: Temperature is 98.9, pulse 76, blood pressure 136/85, respiratory rate of 16, O2 saturations 100% on room air. Heart: Regular without murmur. Lungs: Clear to auscultation bilaterally. Abdomen: Soft and nontender. Fundus firm and well below the umbilicus. Incision site is covered with Aquacel dressing that is clean, dry, and intact. Extremities: No edema, erythema, or tenderness noted. Repeat labs were not indicated on discharge day. DISPOSITION: Home with family if she desires. However, her baby will remain in the hospital on phototherapy and she will likely stay at the hospital with her baby. MEDICATIONS: Percocet 5/325 one to two tablets every 4-6 hours as needed for pain, dispensed 30, no refills, labetalol 200 mg p.o. t.i.d. for her blood pressures, vitamin continue 1 daily, Colace 100 mg twice daily as needed for constipation. FOLLOWUP: She has an appointment to see Dr. Bowman tomorrow in the office for staple removal and postoperative check. INSTRUCTIONS: The patient has been given detailed instructions regarding preeclampsia and to notify medical staff if she has any symptoms related to preeclampsia, including but not limited to, decreased urine output, headache, blurry vision, right upper quadrant pain, nausea, vomiting, or if any other concerns arise. Her questions were answered and she is happy with the discharge plan. [facility] /[id number] [place]AS[place]
== END 2019-11-15 14:03 | disposition home or self-care (01) | DRG 786 ==
LOC: DL.OB 06:03 → OBSVTOIN 08:02 → DL.OB 08:02
PROVIDERS: ADMIT Family Medicine; ATTEND Family Medicine
PROC: 10D00Z1 Extraction of Products of Conception, Low, Open Approach (ICD-10-PCS; principal; 2019-11-09)
DX: O34.211 Maternal care for low transverse scar from previous cesarean delivery (principal); E43 Unspecified severe protein-calorie malnutrition; D62 Acute posthemorrhagic anemia; O99.824 Streptococcus B carrier state complicating childbirth; O69.81X0 Labor and delivery complicated by cord around neck, without compression, not applicable or unspecified; O13.4 Gestational [pregnancy-induced] hypertension without significant proteinuria, complicating childbirth; O99.284 Endocrine, nutritional and metabolic diseases complicating childbirth; O99.03 Anemia complicating the puerperium; Z3A.37 37 weeks gestation of pregnancy; Z37.0 Single live birth
CPT/HCPCS: 36415; 51701; 51702; 80053; 80305-QW; 81003; 82565; 82570; 83615; 84156; 84450; 84460; 84520; 84550; 85025; 85027; 86850; 86870; 86900; 86901; A9270-GY; J0690; J1100; J1200; J1885; J2274; J2405; J2590; J3490; J7120

== ENCOUNTER 2021-09-20 11:24 | Inpatient (IN) | payer MEDICAID ==
[2021-09-20] MEDS ORDERED: Tranexamic Acid 1,000 MG in Sodium Chloride 0.9% 100 ML IV PRN ×3 (11:36→16:53)
[2021-09-20] MEDS ORDERED: Carboprost Tromethamine 250 MCG/1 ML Amp IM PRN ×2 (11:36→16:53)
[2021-09-20] MEDS ORDERED: Oxytocin 10 Units/1 ML SDV IM PRN (11:36)
[2021-09-20] MEDS ORDERED: Oxytocin/Normal Saline 30 UNIT/500 ML BAG IV ONE (11:36)
[2021-09-20] MEDS ORDERED: Citric Acid/Sodium Citrate Solution 30 ML Cup PO ONE ×2 (11:36→14:00)
[2021-09-20] MEDS ORDERED: Methylergonovine 0.2 MG Tab PO PRN (11:36)
[2021-09-20] MEDS ORDERED: Oxytocin/Normal Saline 30 UNIT/500 ML BAG IV SCH (11:45)
[2021-09-20] MEDS ORDERED: Lactated Ringers 1,000 ML IV SCH ×2 (11:45→17:00)
[2021-09-20] MEDS ORDERED: Magnesium Sulfate/Water 4 GM in Premix Bag 1 BAG IV ONE (11:49)
[2021-09-20] MEDS ORDERED: Magnesium Sulfate/Water 20 GM/500 ML BAG IV SCH (12:00)
[2021-09-20] MEDS ORDERED: ceFAZolin 2 GM in Premix Bag 1 BAG IV ONE (13:21)
[2021-09-20 13:28] LABS: CORONAVIRUS COVID-19 NAA NEGATIVE (NEGATIVE); RESPIRATORY SYNCYTIAL VIR NAA NEGATIVE (NEGATIVE)
[2021-09-20] MEDS ORDERED: Oxytocin/Normal Saline 60 UNIT/1,000 ML BAG ONE (13:30)
[2021-09-20] MEDS ORDERED: Citric Acid/Sodium Citrate Solution 30 ML Cup ONE (13:51)
[2021-09-20 13:53] LABS: AMPHETAMINES,URINE POSITIVE (NEGATIVE); BARBITURATES,URINE NEGATIVE (NEGATIVE); BENZODIAZEPINE,URINE NEGATIVE (NEGATIVE); MDMA (ECSTASY), URINE NEGATIVE (NEGATIVE); METHADONE,URINE NEGATIVE (NEGATIVE); METHAMPHETAMINES,URINE POSITIVE (NEGATIVE); OPIATES,URINE NEGATIVE (NEGATIVE); OXYCODONE,URINE NEGATIVE (NEGATIVE); PHENCYCLIDINE,URINE NEGATIVE (NEGATIVE); TCA,URINE NEGATIVE (NEGATIVE)
[2021-09-20] MEDS ORDERED: Acetaminophen 325 MG Tab PO PRN (16:53)
[2021-09-20] MEDS ORDERED: Acetaminophen/oxyCODONE 325-5 MG Tab PO PRN (16:53)
[2021-09-20] MEDS ORDERED: Misoprostol 400 MCG (4 X 100 MCG TAB) RECTAL PRN (16:53)
[2021-09-20] MEDS ORDERED: Methylergonovine 0.2 MG/1 ML Amp IM PRN (16:53)
[2021-09-20] MEDS ORDERED: Naloxone 2 MG/2 ML Syringe IVPUSH PRN (16:53)
[2021-09-20] MEDS ORDERED: diphenhydrAMINE 50 MG/ML SDV IVPUSH PRN (16:53)
[2021-09-20] MEDS ORDERED: ePHEDrine 50 MG/ML SDV IVPUSH PRN (16:53)
[2021-09-20] MEDS ORDERED: Promethazine 25 MG/ML SDV IM ONE (17:07)
[2021-09-20] MEDS: Simethicone 80 MG Tab.Chew PO SCH ×2 (17:40→22:37)
[2021-09-20] MEDS: Ketorolac 30 MG/ML SDV IVPUSH SCH (20:56)
[2021-09-20] MEDS: Sodium Chloride 0.9% 10 ML Syringe FLUSH SCH (20:59)
[2021-09-20] MEDS: Docusate Sodium 100 MG Cap PO PRN (22:37)
[2021-09-21] MEDS ORDERED: Metoclopramide 10 MG/2 ML SDV IV ONE
[2021-09-21] MEDS ORDERED: Ondansetron 4 MG/2 ML SDV IV ONE
[2021-09-21] MEDS ORDERED: Dexamethasone 4 MG/ML SDV IV ONE
[2021-09-21] MEDS: Lactated Ringers 1,000 ML IV SCH (00:34)
[2021-09-21] MEDS: Ketorolac 30 MG/ML SDV IVPUSH SCH ×2 (03:00→08:16)
[2021-09-21] MEDS: Simethicone 80 MG Tab.Chew PO SCH ×4 (08:15→22:52)
[2021-09-21] MEDS: Docusate Sodium 100 MG Cap PO PRN (08:16)
[2021-09-21] MEDS: Acetaminophen/oxyCODONE 325-5 MG Tab PO PRN ×3 (08:16→22:51)
[2021-09-21] MEDS: Prenatal Multivitamin with Calcium/Folic Acid/Iron Tab PO SCH (08:16)
[2021-09-21 11:48] LABS: C.TRACHOMATIS BY TMA Negative (Negative); N.GONORRHOEAE BY TMA Negative (Negative)
[2021-09-21] MEDS: Sodium Chloride 0.9% 10 ML Syringe FLUSH SCH (11:50)
[2021-09-21] MEDS ORDERED: Lactated Ringers 1,000 ML IV ONE (12:56)
[2021-09-21] MEDS: Ibuprofen 800 MG Tab PO PRN (17:01)
[2021-09-22] MEDS: Ibuprofen 800 MG Tab PO PRN ×3 (05:23→22:09)
[2021-09-22] MEDS: Acetaminophen/oxyCODONE 325-5 MG Tab PO PRN ×4 (05:24→22:10)
[2021-09-22] MEDS: Docusate Sodium 100 MG Cap PO PRN ×2 (10:01→22:09)
[2021-09-22] MEDS: Prenatal Multivitamin with Calcium/Folic Acid/Iron Tab PO SCH (10:01)
[2021-09-22] MEDS: Simethicone 80 MG Tab.Chew PO SCH ×4 (10:04→22:09)
[2021-09-23] MEDS: Acetaminophen/oxyCODONE 325-5 MG Tab PO PRN ×5 (04:58→21:43)
[2021-09-23] MEDS: Docusate Sodium 100 MG Cap PO PRN ×2 (09:32→21:42)
[2021-09-23] MEDS: Prenatal Multivitamin with Calcium/Folic Acid/Iron Tab PO SCH (09:33)
[2021-09-23] MEDS: Simethicone 80 MG Tab.Chew PO SCH ×4 (09:33→21:42)
[2021-09-23] MEDS: Ibuprofen 800 MG Tab PO PRN ×2 (09:33→17:13)
[2021-09-23] MEDS: Ferrous Sulfate 325 MG Tab PO SCH (17:12)
[2021-09-23 20:37] LABS: ANION GAP 13.8 mEq/L (7-13); CHLORIDE,CL 102 mmol/L (98-107); SODIUM,NA 139 mmol/L (136-145)
[2021-09-23] MEDS: Labetalol 100 MG Tab PO SCH (21:42)
[2021-09-24] MEDS: Acetaminophen/oxyCODONE 325-5 MG Tab PO PRN ×5 (02:32→22:22)
[2021-09-24] MEDS: Ibuprofen 800 MG Tab PO PRN ×3 (02:32→22:22)
[2021-09-24] MEDS: Docusate Sodium 100 MG Cap PO PRN (08:50)
[2021-09-24] MEDS: Simethicone 80 MG Tab.Chew PO SCH ×4 (08:50→21:17)
[2021-09-24] MEDS: Prenatal Multivitamin with Calcium/Folic Acid/Iron Tab PO SCH (08:50)
[2021-09-24] MEDS: Ferrous Sulfate 325 MG Tab PO SCH ×2 (08:51→18:12)
[2021-09-24] MEDS: Labetalol 100 MG Tab PO SCH ×2 (08:55→21:16)
[2021-09-24] MEDS ORDERED: Calcium Gluconate 10% 1 GM/10 ML SDV IV PRN (10:56)
[2021-09-24] MEDS ORDERED: Magnesium Sulfate/Water 4 GM in Premix Bag 1 BAG IV ONE (10:56)
[2021-09-24] MEDS: Magnesium Sulfate/Water 20 GM/500 ML BAG IV SCH ×2 (12:20→22:21)
[2021-09-24] MEDS: Lactated Ringers 1,000 ML IV SCH (12:20)
[2021-09-25] MEDS: Cyclobenzaprine 10 MG Tab PO PRN ×2 (00:27→10:28)
[2021-09-25] MEDS: Acetaminophen/oxyCODONE 325-5 MG Tab PO PRN ×3 (05:48→15:56)
[2021-09-25] MEDS: Magnesium Sulfate/Water 20 GM/500 ML BAG IV SCH (08:10)
[2021-09-25] MEDS: Lactated Ringers 1,000 ML IV SCH (08:12)
[2021-09-25] MEDS: Simethicone 80 MG Tab.Chew PO SCH ×3 (08:13→19:46)
[2021-09-25] MEDS: Prenatal Multivitamin with Calcium/Folic Acid/Iron Tab PO SCH (08:13)
[2021-09-25] MEDS: Docusate Sodium 100 MG Cap PO PRN (08:13)
[2021-09-25] MEDS: Ferrous Sulfate 325 MG Tab PO SCH ×2 (08:14→19:47)
[2021-09-25] MEDS: Labetalol 100 MG Tab PO SCH (08:14)
[2021-09-25 19:45] VITALS: BP 112/68; PULSE 73
== END 2021-09-25 16:35 | disposition home or self-care (01) | DRG 787 ==
LOC: DL.OBCHECK 11:24 → UNDOADMIN 13:34 → DL.MS 13:34 → DL.OB 09-24 13:45
PROVIDERS: ADMIT Family Medicine; ATTEND Family Medicine
PROC: 10D00Z1 Extraction of Products of Conception, Low, Open Approach (ICD-10-PCS; principal; 2021-09-20)
DX: O13.4 Gestational [pregnancy-induced] hypertension without significant proteinuria, complicating childbirth (principal); O98.52 Other viral diseases complicating childbirth; O34.211 Maternal care for low transverse scar from previous cesarean delivery; O60.14X0 Preterm labor third trimester with preterm delivery third trimester, not applicable or unspecified; O99.324 Drug use complicating childbirth; O14.14 Severe pre-eclampsia complicating childbirth; Z3A.36 36 weeks gestation of pregnancy; Z37.0 Single live birth; J10.1 Influenza due to other identified influenza virus with other respiratory manifestations; F15.90 Other stimulant use, unspecified, uncomplicated; F12.90 Cannabis use, unspecified, uncomplicated; O99.824 Streptococcus B carrier state complicating childbirth; O99.02 Anemia complicating childbirth; D64.9 Anemia, unspecified; Z20.822 Contact with and (suspected) exposure to COVID-19; Z28.82 Immunization not carried out because of caregiver refusal; Z90.49 Acquired absence of other specified parts of digestive tract; Z88.8 Allergy status to other drugs, medicaments and biological substances
CPT/HCPCS: 01967; 0241U; 36415; 51702; 76815; 80053; 80076; 80305-QW; 80307; 81001; 82565; 82570; 83615; 83735; 84156; 84450; 84460; 84520; 84550; 85025; 85027; 86592; 86762; 86803; 86850; 86870; 86900; 86901; 87077; 87081; 87086; 87186; 87210; 87340; 87389; 87491; 87591; A9270-GY; J0690; J1100; J1885; J2405; J2550; J2590; J2765; J3475; J7120